=== PATIENT | female | born 1980 | race Asian ===

== ENCOUNTER 2017-05-10 09:15 | Inpatient (IN) | payer SELFPAY ==
[~2017-05-10] VITALS: Ht 162.6 cm; Wt 78.5 kg
[2017-05-10] MEDS ORDERED: LACTATED RINGERS 1,000 ML IV SCH ×2 (09:17→09:20)
[2017-05-10] MEDS ORDERED: CITRIC ACID/SODIUM CITRATE 30 ML UDC PO SCH (09:20)
[2017-05-10] MEDS ORDERED: ceFAZolin 2,000 MG in NACL 0.9% 100 ML IV SCH (09:20)
[2017-05-10] MEDS ORDERED: IBUPROFEN 800 MG TAB PO PRN ×2 (09:20→12:00)
[2017-05-10 09:30] VITALS: BP 102/65
[2017-05-10] MEDS ORDERED: OXYTOCIN 10 UNITS/ML VIAL ONE (10:15)
[2017-05-10] MEDS ORDERED: TRIAMCINOLONE 10 MG/ML 5ML VIAL ONE (10:16)
[2017-05-10] MEDS ORDERED: ePHEDrine 50 MG/ML VIAL ONE (11:10)
[2017-05-10] MEDS ORDERED: ONDANSETRON 4 MG/2 ML VIAL ONE (11:10)
[2017-05-10] MEDS ORDERED: MIDAZOLAM 2 MG/2 ML VIAL ONE (11:11)
[2017-05-10] MEDS ORDERED: KETAMINE 500 MG/5 ML VIAL ONE (11:11)
[2017-05-10] MEDS ORDERED: MORPHINE PRES FREE 10 MG/10 ML AMP IV ONE (11:11)
[2017-05-10] MEDS ORDERED: fentaNYL 0.05 MG/ML VIAL ONE (11:11)
[2017-05-10 11:16] LABS: BILIRUBIN,URINE NEGATIVE (NEGATIVE); BLOOD, URINE 3+ (NEGATIVE); COLOR,URINE YELLOW (YELLOW); LEUKOCYTE ESTERASE ,URINE 2+ (NEGATIVE); NITRITE, URINE NEGATIVE (NEGATIVE); UGLUCOSE NEGATIVE (NEGATIVE)
[2017-05-10 11:17] LABS: BASOPHILS # (AUTO) 0.1 K/uL (0.00-0.22); MONOCYTES # (AUTO) 0.6 K/uL (0.8-1.0); MONOCYTES % (AUTO) 6.5 % (1.7-9.3)
[2017-05-10 11:20] LABS: BASOPHILS % (AUTO) 0.8 % (0.0-2.0); EOSINOPHILS # (AUTO) 0.1 K/uL (0-0.4); EOSINOPHILS % (AUTO) 0.6 % (0.0-4.0); HEMATOCRIT 37.7 % (36-48); HEMOGLOBIN 13.1 g/dL (12.0-16.0); LYMPHOCYTES # (AUTO) 1.9 K/uL (2.5-16.5); LYMPHOCYTES % (AUTO) 21.3 % (20.5-51.1); MEAN CORPUSCULAR HEMOGLOBIN 31 pg (27-31); MEAN CORPUSCULAR HGB CONC 35 g/dL (33-37); MEAN CORPUSCULAR VOLUME 90 fL (80-94); NEUTROPHILS # (AUTO) 6.3 K/uL (1.8-7.7); NEUTROPHILS % (AUTO) 70.8 % (42.2-75.2); PLATELET COUNT (AUTO) 195 K/uL (140-450); RED BLOOD CELL COUNT(AUTO) 4.17 MIL/uL (4.20-5.40); RED CELL DISTRIBUTION WIDTH 12.8 % (11.6-13.7)
[2017-05-10 11:21] LABS: APPEARANCE,URINE HAZY (CLEAR)
[2017-05-10] MEDS ORDERED: ceFAZolin 1,000 MG VIAL IVP ONE (11:25)
[2017-05-10 11:27] LABS: RBC,URINE 11-20 (MOD) /HPF (0-5)
[2017-05-10 11:28] LABS: WBC,URINE 0-5 (RARE) /HPF (0-5)
[2017-05-10 11:50] LABS: RAPID PLASMA REAGIN NON-REACTIVE (Non Reactiv)
[2017-05-10] MEDS ORDERED: diphenhydrAMINE 50 MG/ML VIAL ONE (11:52)
[2017-05-10] MEDS ORDERED: OXYTOCIN 20 UNITS/LR PREMIX 0 ML IV ONE (11:52)
[2017-05-10] MEDS ORDERED: KETOROLAC 30 MG/ML VIAL IVP PRN (11:55)
[2017-05-10] MEDS ORDERED: diphenhydrAMINE 50 MG/ML VIAL IVP PRN (11:55)
[2017-05-10] MEDS ORDERED: ONDANSETRON 4 MG/2 ML VIAL IVP PRN (11:55)
[2017-05-10] MEDS ORDERED: TEMAZEPAM 15 MG CAP PO PRN (12:00)
[2017-05-10] MEDS ORDERED: TRIMETHOBENZAMIDE 200 MG/2 ML SYR IM PRN (12:00)
[2017-05-10] MEDS ORDERED: MEASLES, MUMPS, AND RUBELLA 1 VIAL SQVAC PRN (12:00)
[2017-05-10] MEDS ORDERED: METHYLERGONOVINE 0.2 MG/ML AMP IM PRN (12:00)
[2017-05-10] MEDS ORDERED: oxyCODONE/APAP 5/325 MG 1 TAB TAB PO PRN (12:00)
[2017-05-10] MEDS ORDERED: SIMETHICONE 80 MG TAB.CHEW PO PRN (12:00)
[2017-05-10] MEDS: OXYTOCIN 20 UNITS in LACTATED RINGERS 1,000 ML IV SCH (13:00)
[2017-05-11] MEDS ORDERED: INFLUENZA VIRUS VACCINE QUAD 0.5 ML SYR IMVAC SCH (04:00)
[2017-05-11] MEDS ORDERED: OXYTOCIN 20 UNITS/LR PREMIX 1,000 ML IV ONE (05:51)
[2017-05-11] MEDS: OXYTOCIN 20 UNITS in LACTATED RINGERS 1,000 ML IV SCH (05:59)
[2017-05-11 06:26] LABS: BASOPHILS # (AUTO) 0.1 K/uL (0.00-0.22); BASOPHILS % (AUTO) 0.6 % (0.0-2.0); EOSINOPHILS % (AUTO) 0.2 % (0.0-4.0); HEMATOCRIT 33.9 % (36-48); HEMOGLOBIN 11.5 g/dL (12.0-16.0); LYMPHOCYTES # (AUTO) 1.2 K/uL (2.5-16.5); LYMPHOCYTES % (AUTO) 9.7 % (20.5-51.1); MEAN CORPUSCULAR HEMOGLOBIN 30 pg (27-31); MEAN CORPUSCULAR HGB CONC 34 g/dL (33-37); MEAN CORPUSCULAR VOLUME 89 fL (80-94); MONOCYTES # (AUTO) 0.9 K/uL (0.8-1.0); NEUTROPHILS # (AUTO) 10.5 K/uL (1.8-7.7); NEUTROPHILS % (AUTO) 82.5 % (42.2-75.2); PLATELET COUNT (AUTO) 159 K/uL (140-450); RED BLOOD CELL COUNT(AUTO) 3.81 MIL/uL (4.20-5.40); RED CELL DISTRIBUTION WIDTH 12.7 % (11.6-13.7); WHITE BLOOD COUNT (AUTO) 12.7 K/uL (4.8-10.8)
--- NOTE | 2017-05-11 09:01 | NUR ---
PATIENT HAS BEEN SCREENED AND CATEGORIZED LOW NUTRITION RISK. PATIENT WILL BE SEEN WITHIN 7 DAYS OF ADMISSION. 05/16/[address]
[2017-05-11] MEDS: HYDROcodone/APAP 5/325 MG 1 TAB TAB PO PRN (20:44)
[2017-05-11] MEDS: DOCUSATE SOD/SENNA 50/8.6 MG 1 TAB PO SCH (20:45)
[2017-05-12] MEDS: HYDROcodone/APAP 5/325 MG 1 TAB TAB PO PRN ×2 (08:12→16:35)
[2017-05-12] MEDS: SODIUM PHOSPHATE 118 ML ENEM RC PRN ×2 (20:21→20:23)
[2017-05-12] MEDS: DOCUSATE SOD/SENNA 50/8.6 MG 1 TAB PO SCH (22:17)
[2017-05-13] MEDS: HYDROcodone/APAP 5/325 MG 1 TAB TAB PO PRN (06:51)
== END 2017-05-14 19:15 | disposition home or self-care (01) | DRG 766 ==
LOC: MLD 09:15 → EDBD 09:15 → MFCC 12:00
PROVIDERS: ADMIT Obstetrics & Gynecology; ATTEND Obstetrics & Gynecology
PROC: 10D00Z1 Extraction of Products of Conception, Low, Open Approach (ICD-10-PCS; principal; 2017-05-10 10:30)
PROC: 3E0234Z Introduction of Serum, Toxoid and Vaccine into Muscle, Percutaneous Approach (ICD-10-PCS; 2017-05-11)
PROC: 3E0234Z Introduction of Serum, Toxoid and Vaccine into Muscle, Percutaneous Approach (ICD-10-PCS; 2017-05-11)
DX: O34.211 Maternal care for low transverse scar from previous cesarean delivery (principal); O42.92 Full-term premature rupture of membranes, unspecified as to length of time between rupture and onset of labor; Z23 Encounter for immunization; Z37.0 Single live birth; Z82.49 Family history of ischemic heart disease and other diseases of the circulatory system; Z3A.38 38 weeks gestation of pregnancy
CPT/HCPCS: 36415; 81001; 85025; 86592; 86886; 86900; 86901; 87086; 90658; 90715; J0690; J1200; J2250; J2270; J2405; J2590; J3010; J3301; J7120